=== PATIENT | female | born 1995 | race Caucasian/White ===

== ENCOUNTER 2019-06-30 14:58 | Emergency (ER) | payer BC, SELFPAY ==
[2019-06-30 15:16] VITALS: BP 125/92; PULSE 88; RESP 16; TEMP 37.6; O2SAT 99
--- NOTE | 2019-06-30 16:05 | ED.URI ---
HPI - URI/Sore Throat General Chief Complaint: Upper Respiratory Infection Stated Complaint: Poss sinus infection Time Seen by Provider: 06/30/19 15:55 Source: patient and RN notes reviewed Mode of arrival: ambulatory Limitations: no limitations History of Present Illness HPI Narrative: Patient presents today with a 4-day history of nasal congestion, rhinorrhea, sinus pressure, productive cough. Denies fever or shortness of breath. No history of asthma or COPD. She does not smoke, but she does vape. She has been using cold and flu medicine and NyQuil without much relief. Patient works in an infant room at a daycare and states multiple children have been out with RSV and influenza MD elicited complaint: cough, nasal congestion and sinus pain Related Data Home Medications Medication Instructions Recorded Confirmed etonogestrel-ethinyl estradiol 1 vag ring VAGINAL MONTHLY 04/13/19 04/13/19 [NuvaRing] Allergies Allergy/AdvReac Type Severity Reaction Status Date / Time citalopram AdvReac Intermediate Nervousness Verified 04/13/19 14:00 Review of Systems Review of Systems: Narrative: CONSTITUTIONAL: Denies body aches, fever, chills, or sweats. EYES: Denies visual changes, redness, or discharge. ENT: Denies sore throat, or otalgia.+ Congestion, rhinorrhea, facial pressure CARDIOVASCULAR: Denies chest pain, palpitations, or edema. RESPIRATORY: Denies dyspnea.+ Cough GASTROINTESTINAL: Denies abdominal pain, nausea, vomiting, or diarrhea. GENITOURINARY: Denies dysuria or hematuria. SKIN: Denies rash, itching, or wounds. MUSCULOSKELETAL: Denies back pain, joint pain, or myalgia. NEUROLOGIC: Denies headache, numbness, tingling, or weakness. PSYCH: Denies depression or anxiety. [facility] Family History Family History (Updated 09/05/17 @ 10:57 by DOCTOR UNKNOWN) Grandparent Diabetes mellitus Hypertension Other Family history of malignant neoplasm of breast Social History Social History (Updated 06/30/19 @ 16:06 by Katlin Israel, [employer], ) Smoking status: Current every day smoker Tobacco type: e-cigarettes Second hand tobacco smoke exposure: No Smoking end date: 05/28/17 Alcohol intake: never Gender identity (if verbalized by the patient): Female Comments At time of signature, I have reviewed and agree with nursing past medical, surgical, social and family history unless otherwise noted. Please see nursing chart for further information. There is no relevant family history pertinent to the presenting complaint Exam Narrative: Exam Narrative: GENERAL: Mildly ill-appearing, well-nourished, and in no acute distress. HEAD: Normocephalic, atraumatic. EYES: EOMI. No redness or drainage. Conjunctivae normal. ENT: Mucous membranes pink and moist. Nares severely congested. No rhinorrhea. TMs normal bilaterally. Throat normal. Uvula midline. NECK: Normal AROM. Supple. No lymphadenopathy. CHEST: No respiratory distress. Clear to auscultation. HEART: Regular rate and rhythm. No murmur appreciated. Normal peripheral pulses. EXTREMITIES: Normal range of motion. No edema. SKIN: Warm, dry, no rash. NEURO: No focal deficits. Alert and oriented x3. Gait steady. PSYCH: Normal affect. No signs of depression or anxiety. Course Vital Signs Vital signs: Vital Signs Temperature 99.6 F 06/30/19 15:16 Pulse Rate 88 06/30/19 15:16 Respiratory Rate 16 06/30/19 15:16 Blood Pressure 125/92 H 06/30/19 15:16 Pulse Oximetry 99 06/30/19 15:16 Temperature 99.6 F 06/30/19 15:16 Pulse Rate 88 06/30/19 15:16 Respiratory Rate 16 06/30/19 15:16 Blood Pressure 125/92 H 06/30/19 15:16 Pulse Oximetry 99 06/30/19 15:16 Reviewed. Pt has been instructed to follow up with her PCP regarding her elevated blood pressure today. MDM - URI/Sore Throat Differential Diagnosis Differential diagnosis: Likely upper respiratory infection, otitis media, sinusitis, viral infection and influenza [place]
== END 2019-06-30 16:21 | disposition home or self-care (01) ==
PROVIDERS: Emergency Provider Nurse Practitioner
DX: J06.9 Acute upper respiratory infection, unspecified (principal); F17.200 Nicotine dependence, unspecified, uncomplicated
CPT/HCPCS: 87804; 99212; G0463

== ENCOUNTER 2019-07-04 11:25 | Emergency (ER) | payer BC, SELFPAY ==
--- NOTE | 2019-07-04 11:43 | PC.NURSE ---
After discharge door operator out to waiting room to explain delay with busy department pt and her two daughters left ambulatory. Pt states I'm just going to go somewhere else . Pt reports was here for cold sxs that aren't resolving and now an eye irritation that is beginning.
== END 2019-07-04 11:43 | disposition left against medical advice (07) ==
LOC: ANHED 12:02
DX: Z53.21 Procedure and treatment not carried out due to patient leaving prior to being seen by health care provider (principal)
CPT/HCPCS: 99199

== ENCOUNTER 2019-07-04 12:02 | Emergency (ER) | payer BC, SELFPAY ==
[2019-07-04 12:16] VITALS: BP 116/84; PULSE 88; RESP 16; TEMP 37.3; O2SAT 100
--- NOTE | 2019-07-04 12:53 | ED.URI ---
HPI - URI/Sore Throat General Chief Complaint: Upper Respiratory Infection Stated Complaint: Sinus/Eye Problems Time Seen by Provider: 07/04/19 12:53 Source: patient Mode of arrival: ambulatory Limitations: no limitations History of Present Illness HPI Narrative: Viral Palumbo is a 24 yo female with no PMH came to [facility] care with eyelid swelling and draininage abd sinus congestion x 4 days. Related Data Home Medications Medication Instructions Recorded Confirmed etonogestrel-ethinyl estradiol 1 vag ring VAGINAL MONTHLY 04/13/19 04/13/19 [NuvaRing] Allergies Allergy/AdvReac Type Severity Reaction Status Date / Time citalopram AdvReac Intermediate Nervousness Verified 04/13/19 14:00 Review of Systems Review of Systems: Narrative: CONSTITUTIONAL: Denies fever, chills, sweats. EYES: Denies visual changes, redness, discharge. ENT: has rhinorrhea, congestion, sore throat, no otalgia. CARDIOVASCULAR: Denies chest pain, palpitations, edema. RESPIRATORY: Denies dyspnea, wheezing, dry cough GASTROINTESTINAL: Denies abdominal pain, nausea, vomiting, diarrhea. GENITOURINARY: Denies dysuria, hematuria, abnormal discharge SKIN: Denies rash or itching. MUSCULOSKELETAL: Denies acute back pain, joint pain, or myalgia. NEUROLOGIC: Denies numbness, or focal weakness. PSYCHIATRIC: Denies anxiety or depression. [facility] Family History Family History (Updated 09/05/17 @ 10:57 by DOCTOR UNKNOWN) Grandparent Diabetes mellitus Hypertension Other Family history of malignant neoplasm of breast Social History Social History (Updated 06/30/19 @ 16:06 by Katlin Israel, [facility], ) Smoking status: Current every day smoker Tobacco type: e-cigarettes Second hand tobacco smoke exposure: No Smoking end date: 05/28/17 Alcohol intake: never Gender identity (if verbalized by the patient): Female Comments At time of signature, I agree with nursing past medical, surgical, social and family history. There is no relevant family history pertinent to the presenting complaint. Exam Narrative: Exam Narrative: GENERAL: This is a well-nourished, well-developed patient, in mderate distress. HEAD: normocephalic, atraumatic. EYES: PERRL. Sclera clear/white. Vision is grossly intact. EARS: External ears normal, auditory canals clear and without drainage, TMs normal without perforation. Hearing grossly intact. NOSE: External nose normal with no obvious nasal discharge, nares without redness, no rhinorrhea. THROAT: Mucous membranes moist, posterior pharynx clear. NECK: Neck supple, non-tender without lymphadenopathy, masses or thyromegaly. CARDIOVASCULAR: Regular rate and rhythm without murmurs, gallops, or rubs. RESPIRATORY: Clear to auscultation. Breath sounds equal bilaterally. No wheezes, rales, or rhonchi. GASTROINTESTINAL: Abdomen soft, non-tender, nondistended. SKIN: warm, intact with no suspicious lesions or rash, good texture and turgor. NEURO: awake, alert, and oriented to person, place and time. There were no obvious focal neurologic abnormalities. Steady gait EXTREMITIES: Normal range of motion. No edema. . BACK: Nontender without deformity or crepitance. No flank tenderness. Course Course Emergency Course: Started on prednisone and codeine cough syrup Vital Signs Vital signs: Vital Signs Temperature 99.1 F 07/04/19 12:16 Pulse Rate 88 07/04/19 12:16 Respiratory Rate 16 07/04/19 12:16 Blood Pressure 116/84 07/04/19 12:16 Pulse Oximetry 100 07/04/19 12:16 Temperature 99.1 F 07/04/19 12:16 Pulse Rate 88 07/04/19 12:16 Respiratory Rate 16 07/04/19 12:16 Blood Pressure 116/84 07/04/19 12:16 Pulse Oximetry 100 07/04/19 12:16 MDM - URI/Sore Throat Differential Diagnosis Differential diagnosis: Likely upper respiratory infection, sinusitis and viral infection Discharge Plan Discharge Clinical Impression: Upper respiratory infection Qualifiers: URI type: unspecified UR
== END 2019-07-04 13:16 | disposition home or self-care (01) ==
PROVIDERS: Emergency Provider Nurse Practitioner
DX: J06.9 Acute upper respiratory infection, unspecified (principal); F17.200 Nicotine dependence, unspecified, uncomplicated
CPT/HCPCS: 99213; G0463

== ENCOUNTER 2019-07-23 11:10 | Emergency (ER) | payer BC, SELFPAY ==
--- NOTE | 2019-07-23 11:19 | ED.URI ---
HPI - URI/Sore Throat General Chief Complaint: Upper Respiratory Infection Stated Complaint: Sore Throat Time Seen by Provider: 07/23/19 11:30 Source: patient and RN notes reviewed Mode of arrival: ambulatory Limitations: no limitations History of Present Illness HPI Narrative: 24-year-old female presents with concern for sore throat, fever started yesterday. Reports symptoms worse today. Reports lymph node tender on the left side of her neck. Reports headache. Denies nausea, vomiting MD elicited complaint: sore throat Related Data Home Medications Medication Instructions Recorded Confirmed etonogestrel-ethinyl estradiol 1 vag ring VAGINAL MONTHLY 04/13/19 07/23/19 [NuvaRing] Allergies Allergy/AdvReac Type Severity Reaction Status Date / Time citalopram AdvReac Intermediate Nervousness Verified 04/13/19 14:00 Review of Systems Review of Systems: Narrative: CONSTITUTIONAL: Reports malaise, fever. EYES: Denies visual changes, redness, or discharge. ENT: Denies rhinorrhea, congestion, sinus pain, otalgia. Reports sore throat. CARDIOVASCULAR: Denies chest pain, palpitations, or edema. RESPIRATORY: Denies cough or dyspnea. GASTROINTESTINAL: Denies abdominal pain, nausea, vomiting, diarrhea SKIN: Denies rash or itching. MUSCULOSKELETAL: Denies myalgia. NEUROLOGIC: Reports headache. All systems reviewed & are unremarkable except as noted in HPI and below PMFSH Family History Family History (Updated 09/05/17 @ 10:57 by DOCTOR UNKNOWN) Grandparent Diabetes mellitus Hypertension Other Family history of malignant neoplasm of breast Social History Social History (Updated 06/30/19 @ 16:06 by Katlin Israel, [facility], ) Smoking status: Current every day smoker Tobacco type: e-cigarettes Second hand tobacco smoke exposure: No Smoking end date: 05/28/17 Alcohol intake: never Gender identity (if verbalized by the patient): Female Comments At time of signature, agree with nursing past medical, surgical, social and family history. There is no relevant family history pertinent to the presenting complaint Exam Narrative: Exam Narrative: GENERAL: Well-appearing, well-nourished, and in no acute distress. HEAD: Normocephalic EYES: PERRLA, conjunctivae clear ENT: Nares clear, turbinates pink, no discharge. Mucous membranes moist. TM pearly cintron with sharp light reflex bilaterally; no tragal tenderness. Oropharynx erythematous without lesions. Tonsils mildly enlarged and without exudate, no drooling, no hoarseness, no trismus. NECK: Supple. No lymphadenopathy CHEST: Clear to auscultation, breath sounds equal. No wheezing, rhonchi, rales, or stridor. No respiratory distress, speaks in full sentences. HEART: Regular rate and rhythm. No murmur heard. Normal peripheral pulses. SKIN: Warm, dry, no rash. NEURO: Alert and oriented x3. PSYCH: Normal mood and affect Course Course Emergency Course: Patient is aware of diagnosis, understands and agrees to treatment plan. Anticipatory guidance given. Patient agrees to follow-up as directed and is aware of reasons to seek care at the emergency department. Portions of this record may have been created with voice recognition software Vital Signs Vital signs: Vital Signs Temperature 99.7 F H 07/23/19 11:21 Pulse Rate 98 07/23/19 11:21 Respiratory Rate 16 07/23/19 11:21 Blood Pressure 124/86 07/23/19 11:21 Pulse Oximetry 100 07/23/19 11:21 Temperature 99.7 F H 07/23/19 11:21 Pulse Rate 98 07/23/19 11:21 Respiratory Rate 16 07/23/19 11:21 Blood Pressure 124/86 07/23/19 11:21 Pulse Oximetry 100 07/23/19 11:21 Reviewed. MDM - URI/Sore Throat MDM Narrative Medical decision making narrative: Differential diagnosis considered: Strep pharyngitis, allergic rhinitis, upper respiratory tract infection, sinusitis, rhinosinusitis, nasopharyngitis. viral pharyngitis, otitis media, otitis externa, pneumonia, bronchitis, viral cough syndrome
[2019-07-23 11:21] VITALS: BP 124/86; PULSE 98; RESP 16; TEMP 37.6; O2SAT 100
== END 2019-07-23 11:45 | disposition home or self-care (01) ==
PROVIDERS: Emergency Provider Nurse Practitioner
DX: J02.0 Streptococcal pharyngitis (principal); F17.200 Nicotine dependence, unspecified, uncomplicated
CPT/HCPCS: 87880; 99213; G0463

== ENCOUNTER 2019-11-18 14:30 | Emergency (ER) | payer BC, SELFPAY ==
[2019-11-18 14:42] VITALS: BP 117/64; PULSE 74; RESP 16; TEMP 37.6; O2SAT 100
--- NOTE | 2019-11-18 14:53 | ED.GENADULT ---
HPI - General Adult General Chief complaint: Skin/Abscess/Foreign Body Stated complaint: rash Time Seen by Provider: 11/18/19 14:53 Source: patient Mode of arrival: ambulatory Limitations: no limitations History of Present Illness HPI narrative: 24-year-old female patient presents to the [facility] with complaints of a rash to the trunk area for the past 2 days. Patient states she noticed it 2 days ago. Patient states it does not really itch and is not painful. Patient states that it is not to the genital area but states that there is some area to her thighs and upper thighs. Patient denies any fevers, fatigue or illness recently. Patient denies coming into contact with anything that she is allergic to. Patient denies any vaginal discharge. Patient states that she is sexually active with 2 partners. Patient states she is currently on her. Patient denies any or breast-feeding at this time. Patient states last time she was tested for STDs was over a year ago. Patient denies any rash to the palms or feet that she is aware of. Related Data Home Medications Medication Instructions Recorded Confirmed etonogestrel-ethinyl estradiol 1 vag ring VAGINAL MONTHLY 04/13/19 07/23/19 [NuvaRing] Allergies Allergy/AdvReac Type Severity Reaction Status Date / Time citalopram AdvReac Intermediate Nervousness Verified 04/13/19 14:00 Review of Systems Review of Systems: Narrative: CONSTITUTIONAL: Denies fever, chills, or sweats. EYES: Denies visual changes, redness, or discharge. ENT: Denies rhinorrhea, congestion, sore throat, or otalgia. CARDIOVASCULAR: Denies chest pain, palpitations, or edema. RESPIRATORY: Denies cough or dyspnea. GASTROINTESTINAL: Denies abdominal pain, nausea, vomiting, or diarrhea. GENITOURINARY: Denies dysuria or hematuria. SKIN: Positive rash to abdomen x2 days, denies itching or pain. MUSCULOSKELETAL: Denies back pain, joint pain, or myalgia. NEUROLOGIC: Denies headache, numbness, or weakness. PSYCHIATRIC: Denies anxiety or depression. [facility] Family History Family History Grandparent Diabetes mellitus Hypertension Other Family history of malignant neoplasm of breast Social History Social History Smoking status: Current every day smoker Tobacco type: e-cigarettes/vaping Second hand tobacco smoke exposure: No Smoking end date: 05/28/17 Alcohol intake: never Gender identity (if verbalized by the patient): Female Comments At the time of my signature I agree with nursing past medical history, surgical, social, and family history. There is no relevant family history pertinent to the presenting complaint. Exam Narrative: Exam Narrative: GENERAL: Well-appearing, well-nourished, and in no acute distress. HEAD: Normocephalic, atraumatic. EYES: PERRLA and EOMI. ENT: Nares clear, no rhinorrhea or epistaxis. Mucous membranes moist. NECK: Supple. No lymphadenopathy CHEST: Clear to auscultation. No respiratory distress. HEART: Regular rate and rhythm. No murmur heard. Normal peripheral pulses. ABDOMEN: Soft, nontender, nondistended, normal active bowel sounds. EXTREMITIES: Normal range of motion. No edema. SKIN: Warm, dry, patient has red and brown rough papules noted to the trunk area that wraps around to the flanks and extends to the upper thighs. Denies itchiness or pain to the areas. No open wounds or drainage. No surrounding erythema or raised areas. No punctate zamora noted. NEURO: No focal deficits. Alert and oriented x3. Course Reevaluation(s) Reevaluation #1: Reevaluated patient. Discussed with her that her test is negative and her urine dip looks okay. Discussed with her that I try calling the [facility] however since the COVID pandemic they are currently not seeing patients. They referred me to the [facility]
== END 2019-11-18 15:40 | disposition short-term general hospital (02) ==
PROVIDERS: Emergency Provider Nurse Practitioner Family
DX: R21 Rash and other nonspecific skin eruption (principal); F17.290 Nicotine dependence, other tobacco product, uncomplicated
CPT/HCPCS: 81003; 81025; 99213; G0463

== ENCOUNTER 2019-11-18 16:06 | Emergency (ER) | payer BC, SELFPAY ==
[2019-11-18 16:08] VITALS: BP 130/89; PULSE 70; RESP 19; TEMP 36.9; O2SAT 100
--- NOTE | 2019-11-18 16:46 | ED.GENADULT ---
HPI - General Adult General Chief complaint: Skin/Abscess/Foreign Body <Stephen Cid PA-C - Last Filed: 11/18/19 17:06> Stated complaint: rash from urgent care <Stephen Cid PA-C - Last Filed: 11/18/19 17:06> Time Seen by Provider: 11/18/19 16:12 <Stephen Cid PA-C - Last Filed: 11/18/19 17:06> Source: patient <Stephen Cid PA-C - Last Filed: 11/18/19 17:06> Mode of arrival: ambulatory <Stephen Cid PA-C - Last Filed: 11/18/19 17:06> Limitations: no limitations <Stephen Cid PA-C - Last Filed: 11/18/19 17:06> History of Present Illness HPI narrative: Patient is a 24-year-old female who presents to emergency department for evaluation of rash to the torso and back that began over the last day patient denies similar occurrence in the past or known allergic exposures presents in no distress resting comfortably patient notes some itching and discomfort patient was sent from urgent care for concern for syphilis patient denies any concerns for STDs patient has not taken anything for her symptoms <Stephen Cid PA-C - Last Filed: 11/18/19 17:06> Related Data Home medications: Home Medications Medication Instructions Recorded Confirmed etonogestrel-ethinyl estradiol 1 vag ring VAGINAL MONTHLY 04/13/19 07/23/19 [NuvaRing] <Stephen Cid PA-C - Last Filed: 11/18/19 17:06> Allergies/adverse reactions: Allergies Allergy/AdvReac Type Severity Reaction Status Date / Time citalopram AdvReac Intermediate Nervousness Verified 11/18/19 16:10 <Stephen Cid PA-C - Last Filed: 11/18/19 17:06> Review of Systems Review of Systems: All systems reviewed & are unremarkable except as noted in HPI and below <Stephen Cid PA-C - Last Filed: 11/18/19 17:06> PMFSH Social History Social History: Social History Smoking status: Current every day smoker Tobacco type: e-cigarettes/vaping Second hand tobacco smoke exposure: No Smoking end date: 05/28/17 Alcohol intake: never Gender identity (if verbalized by the patient): Female <AGUSTIN Low Last Filed: 11/18/19 17:06> Exam Narrative: Exam Narrative: GENERAL: Well-appearing, well-nourished, and in no acute distress. HEAD: Normocephalic, atraumatic. EYES: PERRLA and EOMI. ENT: Nares clear, no rhinorrhea or epistaxis. Mucous membranes moist. CHEST: Clear to auscultation. No respiratory distress. No wheezes rales or rhonchi HEART: Regular rate and rhythm. No murmur heard. EXTREMITIES: Normal range of motion. No edema. SKIN: Warm, dry, fine papular rash over the torso and lower back NEURO: No focal deficits. Alert and oriented x3. PSYCH: Normal mood and affect. <AGUSTIN Low Last Filed: 11/18/19 17:06> Course Course Emergency Course: Patient in the room in no distress aware of case findings treatment plan and diagnosis agreeing to follow-up as directed <AGUSTIN Low Last Filed: 11/18/19 17:06> Vital Signs Vital signs: Vital Signs Temperature 98.5 F 11/18/19 16:08 Pulse Rate 70 11/18/19 16:08 Respiratory Rate 19 11/18/19 16:08 Blood Pressure 130/89 11/18/19 16:08 Pulse Oximetry 100 11/18/19 16:08 Temperature 98.5 F 11/18/19 16:08 Pulse Rate 72 11/18/19 17:16 Respiratory Rate 16 11/18/19 17:16 Blood Pressure 112/75 11/18/19 17:16 Pulse Oximetry 100 11/18/19 17:16 <AGUSTIN Low Last Filed: 11/18/19 17:06> Vital Signs Temperature 98.5 F 11/18/19 16:08 Pulse Rate 70 11/18/19 16:08 Respiratory Rate 19 11/18/19 16:08 Blood Pressure 130/89 11/18/19 16:08 Pulse Oximetry 100 11/18/19 16:08 Temperature 98.5 F 11/18/19 16:08 Pulse Rate 72 11/18/19 17:16 Respiratory Rate 16 11/18/19 17:16 Blood Pressure 112/75 11/18/19 17:16 Pulse Oximetry 100 11/18/19 17:16 <Nori Seay
[2019-11-18] MEDS: predniSONE 20 MG TABLET 60 MG PO (16:58)
[2019-11-18 17:16] VITALS: BP 112/75; PULSE 72; RESP 16; O2SAT 100
== END 2019-11-18 17:16 | disposition home or self-care (01) ==
PROVIDERS: Emergency Provider General Practice
DX: R21 Rash and other nonspecific skin eruption (principal); F17.210 Nicotine dependence, cigarettes, uncomplicated
CPT/HCPCS: 99283; J7512

== ENCOUNTER 2020-01-23 14:41 | Emergency (ER) | payer BC, SELFPAY ==
[2020-01-23 14:56] VITALS: BP 127/88; PULSE 82; RESP 16; TEMP 37.2; O2SAT 99
--- NOTE | 2020-01-23 15:07 | ED.GENADULT ---
HPI - General Adult General Chief complaint: Urogenital-Female Stated complaint: Possible UTI Time Seen by Provider: 01/23/20 15:07 Source: patient and RN notes reviewed Mode of arrival: ambulatory Limitations: no limitations History of Present Illness HPI narrative: 24-year-old female presents with urinary complaints after having sexual intercourse 2.5 hours ago. Dysuria consist of burning. Denies frequency and urgency.? Viral says she had unprotective sexual intercourse with her partner. No treatment. History of BV and finished a 7 day course of Flagyl 1 week ago. Denies fever or chills. No significant pelvic pain. No vaginal discharge.? No concerns for STDs. Exacerbating factors urinating.? Denies hematuria or vaginal bleeding. Denies being , LMP 11/29/19, irregular due to NuvaRing.? No flank pain. Viral says she has [facility] on Sunday01/26/20. Denies nausea, vomiting, and abdominal pain.? Tolerating liquids well.? Remains active. The patient reports she have not been diagnosed with COVID-19. The patient reports she is not waiting for the results of a COVID-19 lab test. The patient reports she do not have fever, chills, weakness, fatigue, myalgia, or facial swelling. The patient reports she do not have a new or worsening cough or shortness of breath. Denies chest pain. The patient reports she do not have any rhinorrhea, congestion, sore throat, loss of taste, and diarrhea. Tolerating po intake well. Denies recent traveling. Denies concerns for COVID-19 or exposures been home with limited outdoor exposure except for essential household needs, work, and return home. At this time, patient is not suspected of having COVID-19. Some parts of this dictation were generated by voice recognition software and may contain typographical and/or grammatical inaccuracies. Related Data Home Medications Medication Instructions Recorded Confirmed etonogestrel-ethinyl estradiol 1 vag ring VAGINAL ONCE 01/23/20 01/23/20 [NuvaRing] Allergies Allergy/AdvReac Type Severity Reaction Status Date / Time citalopram AdvReac Intermediate Nervousness Verified 01/23/20 15:05 Review of Systems Review of Systems: Narrative: CONSTITUTIONAL: Denies fever, chills, sweats. EYES: Denies visual changes, redness, discharge. ENT: Denies rhinorrhea, congestion, sore throat, otalgia. CARDIOVASCULAR: Denies chest pain, palpitations, edema. RESPIRATORY: Denies dyspnea, wheezing, cough. GASTROINTESTINAL: Denies abdominal pain, nausea, vomiting, diarrhea. GENITOURINARY: Complains of dysuria (burning) Denies frequency and urgency with urination, hematuria, abnormal discharge. SKIN: Denies rash or itching. MUSCULOSKELETAL: Denies acute back pain, joint pain, or myalgia. NEUROLOGIC: Denies numbness or focal weakness. PSYCHIATRIC: Denies anxiety or depression. All systems reviewed & are unremarkable except as noted in HPI and below. [facility] Past Medical History Medical History (Updated 01/26/20 @ 17:46 by YAMILETH Beregr) delivery delivered Twin Miscarriage Vaginitis BV Surgical History Surgical History (Updated 01/26/20 @ 17:45 by YAMILETH Berger) H/O section History of dilation and curettage Family History Family History Grandparent Diabetes mellitus Hypertension Other Family history of malignant neoplasm of breast Social History Social History Smoking status: Current every day smoker Tobacco type: e-cigarettes/vaping Second hand tobacco smoke exposure: No Smoking end date: 05/28/17 Alcohol intake: never Gender identity (if verbalized by the patient): Female Comments At time of signature, agree with nurse past medical, surgical, social, and family history.? There is no relevant family history pertinent to the presenting complaint. Exam Narrativ
== END 2020-01-23 15:36 | disposition home or self-care (01) ==
PROVIDERS: Emergency Provider Nurse Practitioner Family
DX: R30.0 Dysuria (principal); F17.200 Nicotine dependence, unspecified, uncomplicated
CPT/HCPCS: 81003; 99212; G0463

== ENCOUNTER 2020-03-18 13:20 | Outpatient (CLI) | payer BC, SELFPAY ==
[2020-03-18 14:02] LABS: Hematocrit 39.4 % (37.0-47.0); Hemoglobin 13.5 g/dL (12.0-15.0)
== END 2020-03-18 13:21 | disposition home or self-care (01) ==
LOC: ANHSURGERY 13:27
PROVIDERS: PCP Nurse Practitioner Family; Visit Provider Obstetrics & Gynecology
DX: R10.2 Pelvic and perineal pain (principal)
CPT/HCPCS: 36415; 85014; 85018; 86850; 86900; 86901

== ENCOUNTER 2020-03-19 03:23 | Outpatient (CLI) | payer BC, SELFPAY ==
[2020-03-19 17:45] LABS: SARS-CoV-2 RNA PCR Negative
== END 2020-03-19 03:24 | disposition home or self-care (01) ==
LOC: ANHCOVIDDT 03:23
PROVIDERS: Visit Provider Obstetrics & Gynecology
DX: Z01.812 Encounter for preprocedural laboratory examination (principal); Z20.828 Contact with and (suspected) exposure to other viral communicable diseases
CPT/HCPCS: 87635; C9803; U0003

== ENCOUNTER 2020-03-22 01:37 | Day surgery (SDC) | payer BC, SELFPAY ==
[2020-03-16 12:47] VITALS: BMI 23.6
--- NOTE | 2020-03-17 07:49 | PM.IMHP ---
H&P: HPI History of Present Illness Date/Time: 03/17/20 07:49 Chief complaint: Pelvic Pain, Irregular Bleeding Narrative: Viral Palumbo is a 24 year old female 2 para 1 1 0 2 who is admitted for laparoscopy, hysteroscopy, dilatation curettage. Her complaints are pain, bleeding and has been refractory to medical therapy. She underwent ultrasound recently in the office which showed a retroflexed uterus and the EMC could not be seen in its entirety. There was a right ovarian cyst and some small left ovarian cyst but a large amount of vascular changes and left adnexa as well as free fluid. Risks and benefits were reviewed including but not exclusive of , aspiration pneumonia, bleeding, transfusion, perforation injury to bowel, bladder, ureters, or other internal organs with need for open laparotomy. She voiced good understanding. She had all questions answered. She received the [employer] handout entitled laparoscopy, dilatation curettage, hysteroscopy respectively. She asked to proceed Review of Systems Review of Systems: All systems reviewed & are unremarkable except as noted in HPI and below PMFSH Past Medical History Medical History (Updated 01/26/20 @ 17:46 by YAMILETH Berger) delivery delivered Twin Miscarriage Vaginitis BV Surgical History Surgical History (Updated 01/26/20 @ 17:45 by YAMILETH Berger) H/O section History of dilation and curettage Family History Family History Grandparent Diabetes mellitus Hypertension Other Family history of malignant neoplasm of breast Social History Social History Years smoked: 4 Smoking status: Current every day smoker Tobacco type: cigarettes and e-cigarettes/vaping Second hand tobacco smoke exposure: No Smoking end date: 05/28/17 Additional smoking assessment comments: STATES NO CIGARETTES IN SEVERAL YEARS, NOW USES VAPOR CIGARETTE Alcohol intake: current Drinks per week: 2 Substance use: current Substance use type: marijuana Last use: 1-2 X PER MONTH Gender identity (if verbalized by the patient): Female Spiritual care concerns: No Meds Home Medications and Allergies Home Medications Medication Instructions Recorded Confirmed Type buspirone 7.5 mg PO DAILY PRN 03/16/20 03/16/20 History levonorgest-eth.estradiol-iron 1 tablet PO DAILY 03/16/20 03/16/20 History [Balcoltra] Allergies Allergy/AdvReac Type Severity Reaction Status Date / Time citalopram AdvReac Intermediate Nervousness Verified 03/16/20 12:47 Exam Const: General: no acute distress Eyes: General: appearance normal, both eyes and all related structures Neck: Neck: supple and no JVD Thyroid: thyroid normal Resp: Effort & Inspection: normal respiratory effort Auscultation: clear to auscultation bilaterally Cardio: Rate: regular rate Rhythm: regular rhythm GI: Inspection: non-distended GI Palp: Yes Soft to palpation, No Tenderness to palpation present (GI) and No Guarding due to palpation present (GI) Auscultation: normal bowel sounds : General: Yes bladder normal to inspection External Female Exam: normal external appearance Speculum Exam - Vagina: normal appearance of the vagina Bimanual exam- vagina & uterus: Uterine tenderness Bimanual Exam- Adnexa, other: tender Skin: General skin exam: no rashes or lesions noted Extrem: General: normal to inspection and no edema Psych: Mental Status: mental status grossly normal Affect: normal affect Assessment and Plan Additional Plan impression: Bleeding and pelvic pain refractory medical therapy Plan: Laparoscopy /hysteroscopy / dilatation and curettage
[2020-03-22] VITALS (9 sets, daily range): BP systolic 105–125; BP diastolic 68–94; PULSE 53–76; RESP 12–20; TEMP 36.4–36.8; O2SAT 100
[2020-03-22] MEDS: ACETAMINOPHEN 500 MG TABLET 1000 MG PO (06:20)
--- NOTE | 2020-03-22 06:24 | WPDHPUPDATE1 ---
History and Physical Update Update Date/Time: 03/22/20 06:24 History and Physical has been reviewed, including an updated exam of the patient. There are NO changes in the patient's condition. Risks, benefits, and alternatives have been discussed and questions answered. Patient agrees to proceed with procedure.
[2020-03-22] MEDS: LACTATED RINGERS 1,000 ML 30 ML IV CONT (06:40)
[2020-03-22] MEDS: KETOROLAC 15 MG/ML VIAL (*BKC) IV PUSH (06:41)
--- NOTE | 2020-03-22 06:50 | WPDANESEPPF ---
Anes - Initial Pre Proc Eval Procedure: Operation Date: 03/22/20 07:30 Proposed Procedures p Diagnostic Laparoscopy And Hysteroscopy Dilation And Curettage - Vivek Granado MD Date/Time: 03/22/20 06:50 Surgeon: Vivek Granado MD Pre Op Diagnosis: Pelvic Pain, Irregular Bleeding Patient Data Age: 24 Gender: F Height: 1.75 m Weight: 52.9 kg Allergies Allergy/AdvReac Type Severity Reaction Status Date / Time citalopram AdvReac Intermediate Nervousness Verified 03/22/20 06:14 Home Medications Medication Instructions Recorded Confirmed Type buspirone 7.5 mg PO DAILY PRN 03/16/20 03/22/20 History levonorgest-eth.estradiol-iron 1 tablet PO DAILY 03/16/20 03/22/20 History [Balcoltra] hydrocodone-acetaminophen 1 tablet PO Q6H PRN #30 tablet 03/22/20 Rx Patient hx anesthesia problems: none Family hx anesthesia problems: none PMFSH Past Medical History Medical History (Updated 01/26/20 @ 17:46 by YAMILETH Berger) delivery delivered Twin Miscarriage Vaginitis BV Surgical History Surgical History (Updated 01/26/20 @ 17:45 by YAMILETH Berger) H/O section History of dilation and curettage Family History Family History Grandparent Diabetes mellitus Hypertension Other Family history of malignant neoplasm of breast Social History Social History Years smoked: 4 Smoking status: Current every day smoker Tobacco type: cigarettes and e-cigarettes/vaping Second hand tobacco smoke exposure: No Smoking end date: 05/28/17 Additional smoking assessment comments: STATES NO CIGARETTES IN SEVERAL YEARS, NOW USES VAPOR CIGARETTE Alcohol intake: current Drinks per week: 2 Substance use: current Substance use type: marijuana Last use: 1-2 X PER MONTH Gender identity (if verbalized by the patient): Female Spiritual care concerns: No Anes - Eval Final PreProcedure Day of Procedure 03/22/20 06:50 Patient weight: normal Heart: regular rate and rhythm Lungs: clear to auscultation and normal air movement Airway: Mallampati scale class II Neurological: alert and oriented Last oral intake: >/= 8 hours ASA classification: II Emergent: no Anesthetic plan: proceed Anesthesia type and monitoring: general ETT and standard monitoring Informed Consent: The patient's anesthetic plan and its attendant risks and benefits were discussed with the patient/family/POA. Questions were solicited and answers provided to the satisfaction of the patient/family/POA.
--- NOTE | 2020-03-22 08:06 | P.OP_ITS ---
Procedure Note - Detailed Date of procedure: 03/22/20 Pre-op diagnosis: Pelvic Pain, Irregular Bleeding Surgeon: Vivek Granado MD Postop diagnosis: Pelvic pain/ irregular bleeding / endometriosis Procedure: Laparoscopy/destruction of endometriosis / hysteroscopy / dilatation curettage Anesthesia: General endotracheal EBL: 5Cc Complications: None Findings: On laparoscopy a retroverted uterus was noted. Multiple powder burn endometriosis areas were seen along the right and left uterosacral ligaments. [id number] of serosanguineous fluid was seen in the cul-de-sac. Endometriosis on the right ovary in the form of powder burn lesions were noted. Normal-appearing tubes and ovaries otherwise. On hysteroscopy the uterus was noted to be retroverted and sounded to7.5cm. Normal-appearing endometrial tissue was noted. Description of procedure: The patient was prepped and draped in the normal sterile fashion placed in the dorsal lithotomy position. Under excellent general trach anesthesia weighted speculum placed in posterior fornix of vagina. Anterior lip of the cervix was grasped with a single-tooth tenaculum. The Blackmon's cannula was entered inserted to the cervix and attached to the single- tooth. This was to be used later for uterine manipulation. Next 25 cc of clear urine was drained with 16 Mongolian catheter. The remainder the instruments removed. The gloves were changed. An infraumbilical incision was made. The Veress needle was passed in the abdomen and the abdomen filled with CO2 gas [id number]. 5Mm trocar was directly inserted into the abdomen under direct visualization assuring no injury. The patient was placed in Trendelenburg and a suprapubic incision made. The 5mm trocar was advanced directly with no injury seen. The 50cc of serosanguineous fluid was suctioned out of the pelvis and the areas of endometriosis were noted. These were then desiccated at 35 w per 2nd with monopolar cautery. Irrigation was undertaken to clear. No other abnormalities were seen. The lower sites removed. Gas removed from the abdomen in the upper site removed. Incisions were closed with 4 Monocryl and glue. The patient was awakened. The instruments removed from the vagina. All sponge, needle, instrument counts were correct. There were no immediate complications
[2020-03-22] MEDS: fentaNYL CITRATE INJ (*CRX) 100 MCG/2 ML VIAL 25 MCG IV PUSH ×3 (08:34→09:07)
[2020-03-22] MEDS: oxyCODONE HCL (*CRX) 5 MG TAB IR PO (09:35)
== END 2020-03-22 10:24 | disposition home or self-care (01) ==
PROVIDERS: PCP Nurse Practitioner Family; Visit Provider Obstetrics & Gynecology
PROC: 0UDB8ZZ Extraction of Endometrium, Via Natural or Artificial Opening Endoscopic (ICD-10-PCS; CPT 58558; principal; 2020-03-22 07:30)
DX: R10.2 Pelvic and perineal pain (principal); N93.9 Abnormal uterine and vaginal bleeding, unspecified; N80.3 Endometriosis of pelvic peritoneum; N80.1 Endometriosis of ovary; F17.290 Nicotine dependence, other tobacco product, uncomplicated
CPT/HCPCS: 58662; 58558; 88305; A9270; J0330; J1100; J1885; J2250; J2405; J2704; J3010; J7030; J7120

== ENCOUNTER 2020-04-10 13:16 | Emergency (ER) | payer BC, SELFPAY ==
--- NOTE | 2020-04-10 13:18 | PC.NURSE ---
Patient presents to the ED with 2 young children. She states that she has no one that can care for the children. ED charge nurse spoke with patient and informed her of policy regarding children in the ED. Patient was informed by the ED charge nurse that she was able to be seen but would not be able to have her children in the ED.
== END 2020-04-10 13:18 | disposition left against medical advice (07) ==
PROVIDERS: PCP Nurse Practitioner Family
DX: Z53.21 Procedure and treatment not carried out due to patient leaving prior to being seen by health care provider (principal)
CPT/HCPCS: 99199

== ENCOUNTER 2020-08-10 13:43 | Emergency (ER) | payer BC, SELFPAY ==
--- NOTE | ~2020-08-10 | XR_ITS ---
EXAMINATION: XR humerus LT DATE: 08/10/2020 14:20 INDICATION: Left upper arm pain. TECHNIQUE: 2 views of left humerus on 3 radiographs were obtained. COMPARISON: None. FINDINGS: Bone alignment is normal. No fracture. Joint spaces are well maintained. There is no elbow joint effusion. IMPRESSION: 1. Normal left humerus. Reviewed, dictated and finalized at location A. IMPRESSION: 1. Normal left humerus.
[2020-08-10 14:01] VITALS: BP 131/78; PULSE 67; RESP 16; TEMP 37.1; O2SAT 100
--- NOTE | 2020-08-10 14:02 | ED.GENADULT ---
HPI - General Adult General Chief complaint: Extremity Injury, Upper Stated complaint: Arm Pain Time Seen by Provider: 08/10/20 14:02 Source: patient Mode of arrival: ambulatory Limitations: no limitations History of Present Illness HPI narrative: 25-year-old female patient presents to the [facility] with complaints of left arm pain. Patient states on Sunday she went to the gym and did some chest and arm exercises. Patient states she does not remember specifically injuring her arm at that time and states she did not do any kind of out of the ordinary exercises. Patient states she did feel sore for a couple days afterwards but states that the severe pain to the back of her left upper arm started yesterday. Patient states when he is resting it is not her at all however when she moves in certain ways the pain goes up to a 7 out of 10. Patient states she has been icing it as well as taking Aleve for the pain. Denies any numbness or tingling down the arm. Related Data Home Medications Medication Instructions Recorded Confirmed Unknown Control 08/10/20 Allergies Allergy/AdvReac Type Severity Reaction Status Date / Time citalopram AdvReac Intermediate Nervousness Verified 08/10/20 13:55 Review of Systems Review of Systems: Narrative: CONSTITUTIONAL: Denies fever, chills, or sweats. EYES: Denies visual changes, redness, or discharge. ENT: Denies rhinorrhea, congestion, sore throat, or otalgia. CARDIOVASCULAR: Denies chest pain, palpitations, or edema. RESPIRATORY: Denies cough or dyspnea. GASTROINTESTINAL: Denies abdominal pain, nausea, vomiting, or diarrhea. GENITOURINARY: Denies dysuria or hematuria. SKIN: Denies rash or itching. MUSCULOSKELETAL: Denies back pain, joint pain, or myalgia. Positive left upper arm pain x2 days NEUROLOGIC: Denies headache, numbness, or weakness. PSYCHIATRIC: Denies anxiety or depression. [facility] Past Medical History Medical History delivery delivered Twin Miscarriage Vaginitis BV Surgical History Surgical History H/O section History of dilation and curettage Family History Family History Grandparent Diabetes mellitus Hypertension Other Family history of malignant neoplasm of breast Social History Social History Years smoked: 4 Smoking status: Current every day smoker Tobacco type: cigarettes and e-cigarettes/vaping Second hand tobacco smoke exposure: No Smoking end date: 05/28/17 Additional smoking assessment comments: STATES NO CIGARETTES IN SEVERAL YEARS, NOW USES VAPOR CIGARETTE Alcohol intake: current Drinks per week: 2 Substance use: current Substance use type: marijuana Last use: 1-2 X PER MONTH Gender identity (if verbalized by the patient): Female Spiritual care concerns: No Comments At the time of my signature I agree with nursing past medical history, surgical, social, and family history. There is no relevant family history pertinent to the presenting complaint. Exam Narrative: Exam Narrative: GENERAL: Well-appearing, well-nourished, and in no acute distress. HEAD: Normocephalic, atraumatic. EYES: PERRLA and EOMI. ENT: Nares clear, no rhinorrhea or epistaxis. Mucous membranes moist. NECK: Supple. No lymphadenopathy CHEST: Clear to auscultation. No respiratory distress. HEART: Regular rate and rhythm. No murmur heard. Normal peripheral pulses. ABDOMEN: Soft, nontender, nondistended, normal active bowel sounds. EXTREMITIES: The L shoulder is without obvious asymmetry or deformity whn compared to the R shoulder. No surface trauma, ecchymosis, crepitus. No bony deformity or prominence of the humeral head No erythema, warmth, swelling. no tenderness to palpation to clavicle, A to C joint, acro
== END 2020-08-10 14:32 | disposition home or self-care (01) ==
PROVIDERS: Emergency Provider Nurse Practitioner Family; PCP Nurse Practitioner Family
DX: S46.912A Strain of unspecified muscle, fascia and tendon at shoulder and upper arm level, left arm, initial encounter (principal); X58.XXXA Exposure to other specified factors, initial encounter; F17.210 Nicotine dependence, cigarettes, uncomplicated
CPT/HCPCS: 73060; 99213; G0463